=== PATIENT | male | born 1995 | race Hispanic/Latino ===

== ENCOUNTER 2017-08-23 16:01 | Emergency (ER) | payer SELFPAY ==
[~2017-08-23] VITALS: Ht 167.6 cm; Wt 54.4 kg
--- NOTE | 2017-08-23 18:53 | ED DYSPNEA/ASTHMA COMPLAINT ---
History of Present Illness General Chief Complaint: Dyspnea (COPD, CHF, Other) Stated Complaint: "IM HAVING PROBLEMS BREATHING" Source: patient Exam Limitations: no limitations Vital Signs & Intake/Output Vital Signs & Intake/Output Vital Signs Date Time Temp Pulse Resp B/P B/P Pulse O2 O2 Flow FiO2 Mean Ox Delivery Rate 08/23 2023 98.8 88 20 128/64 96 Room Air 08/23 1844 Room Air 08/23 1618 98.6 60 18 121/73 99 Room Air Allergies Coded Allergies: No Known Allergies (08/23/17) Reconcile Medications Albuterol Sulfate (Ventolin Hfa) 90 MCG HFA.AER.AD 2 PUF INH Q4-6 PRN PRN SHORTNESS OF BREATH Triage Note: PT TO ED FOR ONE EPISODE OF SOB THAT BEGAN WHILE DRIVING TO PICK HIS DAUGHTER UP ABOUT 45 MINUTES AGO, RESOLVED SPONTANEOUSLY. CURRENTLY NOT SOB, COHEN, DENIES PALPITATIONS. Triage Nurses Notes Reviewed? yes Onset: Abrupt Duration: gone now, intermittent Timing: recent history Severity: moderate HPI: Patient is a 21-year-old male with an unremarkable past medical history who is an every day tobacco smoker who presents emergency room with 3 weeks of intermittent shortness of breath complaints. Patient states that today while at rest while driving a car he had acute onset of shortness of breath that lasted approximately 20 minutes as well as left arm paresthesia that completely resolved. Patient since has been asymptomatic. Patient denies any symptoms of fever or chills hemoptysis leg swelling chest pain arm and jaw pain neck pain (Davis Lopez) Past History Travel History Traveled to [place] past 21 day No Medical History Any Pertinent Medical History? none Neurological: NONE EENT: NONE Cardiovascular: NONE Respiratory: NONE Gastrointestinal: NONE Hepatic: NONE Renal: NONE Musculoskeletal: NONE Psychiatric: NONE Endocrine: NONE Blood Disorders: NONE Cancer(s): NONE Surgical History Surgical History: non-contributory Psychosocial History What is your primary language Stateless Tobacco Use: Current Daily Use Daily Tobacco Use Amount/Type: => 5 Cigarettes daily ETOH Use: denies use Illicit Drug Use: marijuana Family History Hx Contributory? No (Davis Lopez) Review of Systems Review of Systems Constitutional: Reports: no symptoms. EENTM: Reports: no symptoms. Respiratory: Reports: see HPI, short of breath. Cardiovascular: Reports: no symptoms. GI: Reports: no symptoms. Genitourinary: Reports: no symptoms. Musculoskeletal: Reports: no symptoms. Skin: Reports: no symptoms. Neurological/Psychological: Reports: see HPI, paresthesia. Hematologic/Endocrine: Reports: no symptoms. Immunologic/Allergic: Reports: no symptoms. All Other Systems: Reviewed and Negative (Davis Lopez) Physical Exam Physical Exam General Appearance: no apparent distress, alert, comfortable Head: atraumatic Eyes: Bilateral: normal appearance. Ears, Nose, Throat: hearing grossly normal Neck: normal inspection Respiratory: normal breath sounds, chest non-tender, no respiratory distress Cardiovascular: regular rate/rhythm Gastrointestinal: normal bowel sounds, soft, non-tender Extremities: normal inspection Skin: intact, warm/dry Core Measures ACS in differential dx? No CVA/TIA Diagnosis No Sepsis Present: No Sepsis Focused Exam Completed? No (Davis Lopez) Progress Differential Diagnosis: asthma, AMI, bronchitis, costochondritis, CHF, COPD, musculoskeletal pain, pericarditis, pulmonary embolism, pneumonia, pneumothorax, rib fracture, unstable angina Plan of Care: Orders Procedure Date/time Status EKG 08/23 162 Active Patient on this examination was in no apparent distress resting comfortably unremarkable ENT exam clear lungs auscultation no chest pain unremarkable EKG and chest x-ray [facility] Diagnostic Imaging: Viewed by Me: Radiology Read. CXR Impression: no acute abnormality, no infiltrates, normal size heart Initial ED EKG: normal intervals, normal p-waves, 69 BPM,NSR Comments: PATIENT: TIGIST LERMA PRESENT AGE: 21 PATIENT ACCOUNT NO: [id number] : 93 LOCATION: [facility] ORDERING PHYSICIAN: Davis ROBERT SERVICE DATE: 08/23/17 EXAM TYPE: RAD - XRY-CHEST XRAY, TWO VIEWS EXAMINATION: XR CHEST CLINICAL INFORMATION: Shortness of breath. COMPARISON: None TECHNIQUE: 2 views of the chest were obtained. FINDINGS: No significant abnormality is noted involving the heart, lungs, mediastinum, bony thorax or soft tissues. IMPRESSION: Unremarkable examination. DICTATED BY: Tonio Sanders MD DATE/TIME DICTATED:08/23/171939 IMMUNOCHEMIST:JONH (Davis Lopez) Departure Departure Disposition: HOME OR SELF CARE Condition: Stable Clinical Impression Primary Impression: Dyspnea Referrals: Patient Has No Primary Care Dr (PCP/Family) Additional Instructions: As discussed discontinue smoking, begin the prescription of Ventolin for shortness of breath, prescriptions WAITING at [facility]. IF Symptoms worsen return to emergency, if no better on Friday follow-up with primary care doctor Departure Forms: Customer Survey General Discharge Information Prescriptions: Current Visit Scripts Albuterol Sulfate (Ventolin Hfa) 2 PUF INH Q4-6 PRN PRN SHORTNESS OF BREATH #1 INHAL (Davis Lopez) PA/PHOTO OFFSET PRINTER Co-Sign Statement Statement: ED Attending supervision documentation- I saw and evaluated the patient. I have also reviewed all the pertinent lab results and diagnostic results. I agree with the findings and the plan of care as documented in the PA's/PHOTO OFFSET PRINTER's documentation. x I have reviewed the ED Record and agree with the PA's/PHOTO OFFSET PRINTER's documentation. [] Additions or exceptions (if any) to the PAs/PHOTO OFFSET PRINTER's note and plan are summarized below: [] (Timmy ANDERS,Sanjay) Critical Care Note Critical Care Note Critical Care Time: non-applicable (Davis Lopez)
--- NOTE | 2017-08-23 19:45 | RADIOLOGY REPORT ---
EXAMINATION: XR CHEST CLINICAL INFORMATION: Shortness of breath. COMPARISON: None TECHNIQUE: 2 views of the chest were obtained. FINDINGS: No significant abnormality is noted involving the heart, lungs, mediastinum, bony thorax or soft tissues. IMPRESSION: Unremarkable examination.
[2017-08-23] MEDS ORDERED: VENTOLIN HFA18 GM INH (19:51)
[2017-08-23 20:24] VITALS: BP 128/64
== END 2017-08-23 20:19 ==
LOC: ERH 16:01
DX: R06.00 Dyspnea, unspecified (principal)
CPT/HCPCS: 71046; 93005; 93010